=== PATIENT | female | born 1965 | race Hispanic/Latino ===

== ENCOUNTER 2024-06-26 23:55 | Emergency (ER) | payer BC, OTHER ==
[~2024-06-26] VITALS: Ht 157.5 cm; Wt 68.9 kg
[2024-06-26 23:57] VITALS: BP 153/99; PULSE 103; RESP 20; TEMP 97.2
--- NOTE | 2024-06-27 00:10 | NUR ---
PT CAME TO WINDOW SAY SHE WAS LEAVING. DAUGHTER WITH PT.
== END 2024-06-27 00:10 | disposition left against medical advice (07) ==
LOC: EDH 23:55
DX: R06.02 Shortness of breath (principal); F41.9 Anxiety disorder, unspecified; Z53.21 Procedure and treatment not carried out due to patient leaving prior to being seen by health care provider